=== PATIENT | male | born 1945 | race Caucasian/White ===

== ENCOUNTER 2016-11-03 10:11 | Observation (INO) | payer MEDICARE, BC ==
[~2016-11-03] VITALS: Ht 182.9 cm; Wt 84.0 kg
--- OUTSIDE RECORDS SUMMARY | 2016-11-03 10:16 | XMS REPORT ---
Author Author Bryon Larsen Organization [employer] Address Unknown Phone Unavailable Care Team Providers Care Maintenance Of Way Supervisor Name Role Phone Bryon Larsen CP Unavailable Allergies No Known Allergies Problems Problem Type Condition Code Onset Dates Condition Status Problem Essential hypertension I10 Active Problem Pure hypercholesterolemia E78.0 Active Problem Prostate cancer C61 Active Medications No Known Medications Results No Known Results Summary Purpose [employer] Submission
--- OUTSIDE RECORDS SUMMARY | 2016-11-03 10:16 | XMS REPORT ---
Author Author Bryon Larsen Organization [employer] Address Unknown Phone Unavailable Care Team Providers Care Wax Blender Name Role Phone Bryon Larsen CP Unavailable Allergies No Known Allergies Problems Problem Type Condition Code Onset Dates Condition Status Problem Essential hypertension I10 Active Problem Pure hypercholesterolemia E78.0 Active Problem Prostate cancer C61 Active Assessment Prostate cancer C61 Active Medications No Known Medications Results No Known Results Summary Purpose [employer] Submission
--- OUTSIDE RECORDS SUMMARY | 2016-11-03 10:16 | XMS REPORT ---
Author Author Chip Alvarado Organization [facility] Address [address] [place] [address] Care Team Providers Care Oil Process Stillman Name Role Phone Chip Alvarado Unavailable [phone] PROBLEMS Type Condition ICD9-CM Code SKK08-GK Code Onset Dates Condition Status SNOMED Code Assessment Sacroiliitis M46.1 Jun, Active 21694213 Assessment Spine pain, lumbosacral M54.5 Jun, Active 44752359 Problem Sacroiliitis M46.1 Active 02299367 Problem Sciatica of right side M54.31 Active 93487625 Problem Essential hypertension I10 Active 83229223 Problem Pure hypercholesterolemia E78.0 Active 703741770 Problem Elevated fasting blood sugar R73.01 Active 180051510 Problem Prostate cancer C61 Active 488712286 ALLERGIES Substance Reaction Event Type Date Status N.K.D.A. Unknown Non Drug Allergy Jun, Unknown SOCIAL HISTORY No smoking Hx information available PLAN OF CARE VITAL SIGNS Temperature 98.3 degrees Fahrenheit 2016-07-23 Weight 187.5 lbs 2016-07-23 Height 72 in 2016-07-23 BMI 25.43 kg/m2 2016-07-23 Blood pressure systolic 156 mm Hg 2016-07-23 Blood pressure diastolic 84 mm Hg 2016-07-23 MEDICATIONS Medication Instructions Dosage Frequency Start Date End Date Duration Status simvastatin 40 mg orally once a day (at bedtime) 1 tab(s) May, 90 Active lisinopril 20 mg orally once a day 1 tab(s) 24h 90 days Active atenolol 50 mg orally once a day 1 tab(s) 24h May, 90 Active RESULTS No Results PROCEDURES Procedure Date Ordered Related Diagnosis Body Site Office/Outpatient Visit-Est Jul 23, 2016 OMT 1-2 Body Parts Jul 23, 2016 IMMUNIZATIONS No Known Immunizations
--- OUTSIDE RECORDS SUMMARY | 2016-11-03 10:16 | XMS REPORT ---
Author Bryon Garcia Organization [employer] Address Unknown Phone Unavailable Care Team Providers Care Rn Acute Name Role Phone Bryon Larsen CP Unavailable Allergies, Adverse Reactions, Alerts Substance Reaction Event Type N.K.D.A. Info Not Available Non Drug Allergy Problems Problem Type Condition Code Onset Dates Condition Status Problem Prostate cancer C61 Active Problem Essential hypertension I10 Active Problem Elevated fasting blood sugar R73.01 Active Assessment Essential hypertension I10 Active Assessment Elevated fasting blood sugar R73.01 Active Problem Pure hypercholesterolemia E78.0 Active Assessment Routine medical exam Z00.00 Active Medications Medication Code System Code Instructions Start Date End Date Status Dosage lisinopril NDC 86700 20 mg orally once a day 1 tab(s) atenolol NDC 20359 50 mg orally once a day Jun 02, 2016 1 tab(s) simvastatin NDC 60631 40 mg orally once a day (at bedtime) Jun 02, 2016 1 tab(s) Procedures Procedure Coding System Code Date Immunization Admin CPT-4 11015 Jun 09, 2016 PNEUMOCOCCAL VACC, 13 MATTI IM CPT-4 49611 Jun 09, 2016 Flu Shot-Adult CPT-4 92962 Jun 09, 2016 AWV-Subsequent CPT-4 G0439 Jun 09, 2016 Vital Signs Date/Time: Jun 09, 2016 Temperature 98.5 F Blood Pressure Diastolic 70 mm Hg Blood Pressure Systolic 142 mm Hg BMI 25.14 Index Height 72 in Weight 185.4 lbs Results No Known Results Immunizations Vaccine Administration Date Flu Shot-Adult Jun 09, 2016 Prevnar-13 Jun 09, 2016 Summary Purpose [employer] Submission
--- OUTSIDE RECORDS SUMMARY | 2016-11-03 10:16 | XMS REPORT ---
Author Bryon Garcia Organization [employer] Address Unknown Phone Unavailable Care Team Providers Care Check Processing Clerk Name Role Phone Bryon Larsen CP Unavailable Allergies No Known Allergies Problems Problem Type Condition Code Onset Dates Condition Status Problem Essential hypertension I10 Active Problem Pure hypercholesterolemia E78.0 Active Problem Prostate cancer C61 Active Assessment Pure hypercholesterolemia E78.0 Active Assessment Prostate cancer C61 Active Assessment Essential hypertension I10 Active Medications No Known Medications Results No Known Results Summary Purpose [employer] Submission
--- NOTE | 2016-11-03 10:17 | NUR ---
EKG MACHINE IS NOT FUNCTIONING RIGHT. WILL GET DRYWALL TAPER HELPER DOWN
--- NOTE | 2016-11-03 10:25 | NUR ---
DR FORRESTER IN
[2016-11-03] MEDS ORDERED: NORMAL SALINE 1,000 ML IV ONE (10:34)
[2016-11-03] MEDS ORDERED: ATEN50TA PO (10:36)
[2016-11-03] MEDS ORDERED: SIMV40TA5 PO (10:37)
[2016-11-03] MEDS ORDERED: LISI-621 PO (10:37)
[2016-11-03 10:42] LABS: BASOPHILS % (AUTO) 0.4 % (0-2); EOSINOPHILS # (AUTO) 0.1 T/MM3 (0-0.5); EOSINOPHILS % (AUTO) 0.7 % (0-4); HCT - HEMATOCRIT 43.1 % (41-53); HGB - HEMOGLOBIN 14.7 GM/DL (13.5-17.5); IMMATURE GRANULOCYTE # (AUTO) 0.03 T/MM3 (0.00-0.03); IMMATURE GRANULOCYTE % (AUTO) 0.3 % (0.0-0.5); LYMPHOCYTES # (AUTO) 5.1 T/MM3 (1-4.8); LYMPHOCYTES % (AUTO) 50.4 % (23-45); MEAN CORPUSCULAR HGB 30.8 UUG (26-34); MEAN CORPUSCULAR HGB CONC(MCHC 34.1 GM/DL (31-37); MEAN CORPUSCULAR VOLUME 90.2 UM3 (80-100); MONOCYTES # (AUTO) 0.8 T/MM3 (0-0.8); MONOCYTES % (AUTO) 7.8 % (0-9.0); NEUTROPHILS % (AUTO) 40.4 % (33-66); RED BLOOD COUNT 4.78 M/MM3 (4.50-5.90)
[2016-11-03 10:44] LABS: PROTHROMBIN TIME 10.9 SEC (9.31-12.49)
[2016-11-03] MEDS ORDERED: ASPIRIN 81 MG CHEWABLE TABLET PO ONE (10:45)
[2016-11-03 10:47] LABS: ALBUMIN 4.3 G/DL (3.5-5.0); ALBUMIN/GLOBULIN RATIO 1.2 RATIO (1.1-2.2); ALKALINE PHOSPHATASE 57 U/L (38-126); ALT (SGPT) 36 U/L (21-72); ANION GAP 16 MEQ/L (5-15); AST (SGOT) 34 U/L (17-59); BUN/CREATININE RATIO 25 RATIO (6-26); CALCIUM 9.8 MG/DL (8.4-10.2); CHLORIDE 105 MEQ/L (98-107); CO2 - CARBON DIOXIDE 24 MEQ/L (22-30); CREATININE 0.8 MG/DL (0.8-1.5); GLOMERULAR FILTRATION RATE 95; GLUCOSE 124 MG/DL (75-110); POTASSIUM 4.5 MEQ/L (3.6-5); SODIUM 145 MEQ/L (134-144); TOTAL PROTEIN 7.8 G/DL (6.3-8.2)
--- NOTE | 2016-11-03 10:53 | ERPDOC ---
Departure Disposition Decision Date: Nov 03, 2016 Disposition Decision Time: 13:07 Disposition: 01 DISCHARGED HOME, SELF-CARE Impression Impression Impression: Primary Impression: Chest pain Additional Impression: Bradycardia Severity: Moderate Condition: Improved Seen By: Physician only Referrals: ROSHNI KIDD (Family) Patient Instructions: Chest Pain (ED) Problems/Meds/Labs Reviewed?: Yes Medications reviewed and manag: Yes Follow up care ordered?: Yes Mental Status: Alert, Oriented HPI - Chest Pain General Chief Complaint: Chest Pain Stated Complaint: CP Time Seen by Provider: 10:34 HPI - Chest Pain Initial Comments 71-year-old gentleman with chest pain and shortness of breath. This has been gradually increasing over the last several days to the point that he became acutely short of breath this morning and became nervous. Symptoms are approximately 2 hours old with a new onset of shortness of breath. On entering the ED he has no current chest pain, shortness of breath resolved when he laid down on the bed. He has not taken aspirin yet today. Does not smoke, he quit a couple years ago, but does dip chew. Roughly 6 years ago he had an angiogram which was normal. At age 39 years told that he had had a minor heart attack, but no damages ever been documented. No chest trauma. Aspirin Treatment Today: 81 mg x 4 Allergies: Coded Allergies: No Known Allergies (Unverified , 11/03/16) Past History Surgical History Denies Surgeries Social History Does patient use chewing tobac: Yes Substance Use Type: does not use Record Review Pertinent history updated: Yes Review of Systems Cardiovascular Cardiac: see HPI Pulmonary Respiratory: see HPI All other Systems All Other Systems: Reviewed and Negative Physical Exam General General Nourishment: well nourished, well developed, appears stated age Distress Description Initial dyspnea Vitals and Pain First Documented Vital Signs Date Time Temp Pulse Resp B/P Pulse Ox O2 Delivery O2 Flow Rate FiO2 11/03/16 10:14 98.7 55 14 202/96 100 Room Air Weight: Kilograms: 84.600 Height (feet): 6 Height (inches): 0 Triage Pain Scale: Normal Exams: Head: Normocephalic w/o trauma Chest/Resp: Clear all ramirez, with good airflow, and symmetry bilaterally CV: Regular rate and rhythm, without murmur or gallop, Pulses 2+ all extremities, capillary refill, <2 seconds all ext., no pedal edema noted Abdomen: Bowel sounds positive, soft, non-tender, non-distended, no hepatosplenomegaly, masses or bruits noted Neurologic: Patient is alert, and oriented, cranial nerves, motor/sensory/ cerebellar, exams w/o gross deficits, to observation Psychiatric: Patient exhibits, appropriate attention, emotion and affect Differential Diagnoses Considering: Acute ID, Anxiety/Panic, Angina, Aortic Dissection, CHF, Costochondritis, Esophageal Spasm, GERD, Hyperventilation, Pericarditis, Pleurisy, Pneumothorax, Pneumonia, PSVT, Pulmonary Edema, Pulmonary Embolus Progress Results/Orders Orders Procedure Category Date Status Time Cbc W/Auto LAB 11/03/16 Complete Diff-Reflex Manual 10:34 Cmp - Comprehensive LAB 11/03/16 Complete Metabolic 10:34 Probnp LAB 11/03/16 Complete 10:34 Troponin I W LAB 11/03/16 Complete Hemolysis Index 10:34 INR LAB 11/03/16 Complete 10:34 D-Dimer LAB 11/03/16 Complete 10:34 EKG EKG 11/03/16 Taken 10:34 Chest 1 View RAD 11/03/16 Resulted 10:34 Iv Lock (Ed Only) EDM 11/03/16 Transmitted 10:34 Normal Saline (Normal PHA 11/03/16 Complete Saline Iv) 10:34 Aspirin (Asa) PHA 11/03/16 Complete 10:45 Nitroglycerin PHA 11/03/16 Complete (Nitrostat) 11:00 Lab Results Laboratory Tests Test 11/03/16 10:24 White Blood Count 10.0T/MM3 Red Blood Count 4.78M/MM3 Hemoglobin 14.7GM/DL Hematocrit 43.1% Mean Corpuscular Volume 90.2UM3 Mean Corpuscular Hemoglobin 30.8UUG Mean Corpuscular Hemoglobin Concent 34.1GM/DL RDW Standard Deviation 42.1FL Platelet Count 251T/MM3 Mean Platelet Volume 10.0UM3 Immature Granulocyte % (Auto) 0.3% Neutrophils (%) (Auto) 40.4% Lymphocytes (%) (Auto) 50.4% Monocytes (%) (Auto) 7.8% Eosinophils (%) (Auto) 0.7% Basophils (%) (Auto) 0.4% Absolute Immature Granulocyte (auto 0.03T/MM3 Absolute Neutrophils (auto) 4.0T/MM3 Absolute Lymphocytes (auto) 5.1T/MM3 Absolute Monocytes (auto) 0.8T/MM3 Absolute Eosinophils (auto) 0.1T/MM3 Absolute Basophils (auto) 0.0T/MM3 Prothromb Time International Ratio 1.00 D-Dimer 171NG/ML Turbidity < 20 Sodium Level 145MEQ/L Potassium Level 4.5MEQ/L Chloride Level 105MEQ/L Carbon Dioxide Level 24MEQ/L Anion Gap 16MEQ/L Blood Urea Nitrogen 20.0MG/DL Creatinine 0.8MG/DL Glomerular Filtration Rate Calc 95 BUN/Creatinine Ratio 25RATIO Glucose Level 124MG/DL Calculated Osmolality 283MOSM/KG Calcium Level 9.8MG/DL Total Bilirubin 0.90MG/DL Icterus Index < 2 Aspartate Amino Transf (AST/SGOT) 34U/L Alanine Aminotransferase (ALT/SGPT) 36U/L Alkaline Phosphatase 57U/L Troponin I < 0.012ng/ml [id number]-[id number]-Type Natriuretic Peptide 91PG/ML Total Protein 7.8G/DL Albumin 4.3G/DL Globulin 3.5G/DL Albumin/Globulin Ratio 1.2RATIO Chemistry Specimen Hemolysis < 15 Medications Current ED Medications Sodium Chloride (Normal Saline IV) 1,000 ml @ 1,000 mls/hr Q1H ONCE IV Last administered on 11/03/16 10:47; Start 11/03/16 at 10:34; Stop 11/03/16 at 11:33 ; Status DC Aspirin (ASA) 324 mg O ONCE PO Last administered on 11/03/16 10:41; Start 06/11 at 10:45; Stop 11/03/16 at 10:46; Status DC Nitroglycerin (Nitrostat) 0.4 mg O ONCE SL Last administered on 11/03/16 10: 57; Start 11/03/16 at 11:00; Stop 11/03/16 at 11:01; Status DC Progress Progress EKG shows bradycardia, occasionally dipping below 40, but typically running 45- 50 bpm. Because of the newer onset shortness of breath on top of the 2 week chest pain I have some concerns about sending him home. He also has had 2 episodes of chest pain in the ED which were resolved with sublingual nitroglycerin. Patient does have beta juanita on board which may be causing the bradycardia, cardiology graciously agreed to accept this patient to make sure that there were not other issues today. Patient be placed in observation. Dr. Fitzgerald was consult. GENET FORRESTER MD Nov 03, 2016 10:53
--- NOTE | 2016-11-03 10:57 | NUR ---
NITRO PT. C/O LT. ARM PAIN IS RATES A 5. NITRO GIVEN.
[2016-11-03 10:58] LABS: PROBNP 91 PG/ML (0-175)
[2016-11-03] MEDS ORDERED: NITROGLYCERIN 0.4 MG SUBLINGUAL TABLET SL ONE (11:00)
--- NOTE | 2016-11-03 11:07 | NUR ---
PAIN ARM PAIN GONE. BP IMPROVED
--- NOTE | 2016-11-03 11:43 | DI ---
Indication: ITS.REASON: chest pain PROCEDURE: CHEST 1 VIEW: Encounter: Initial Comparison: None FINDINGS: The lungs are clear. There is no abnormal airspace opacity, pleural effusion or pneumothorax identified. The heart size, pulmonary vasculature and mediastinum are within normal limits. No significant skeletal abnormality is seen. IMPRESSION: No acute cardiopulmonary abnormality. .
--- NOTE | 2016-11-03 11:50 | NUR ---
HEART RATE PT HR IS DIPPING BELOW 40 3 TIMES. RUNNING 45 AT PRESENT. PT HAS HAD FLEETING CP X 1.
--- NOTE | 2016-11-03 11:54 | NUR ---
OUTPUT 450 CC
--- NOTE | 2016-11-03 11:55 | NUR ---
HR NURSE ASKED PT IF HIS HR RUNS IN 40'S OR LOWER. HE SAYS ONCE IT WENT DOWN & DR CHANGED HIS ATENOLOL FROM 50 MG TO 25 MG. THEN BECAUSE OF HIS BP HE WAS ADJUSTED BACK UP TO 50 MG. PT TAKES ATENOLOL AT HS.
--- NOTE | 2016-11-03 11:55 | NUR ---
DR FORRESTER IN
--- NOTE | 2016-11-03 13:14 | NUR ---
REPORT TO ARMANDO GARCIA
--- NOTE | 2016-11-03 13:28 | NUR ---
ARRIVAL pt arrived to medical unit at 1328, from ER, via cart. vitals and weight were taken and entered. pt was assessed and made comfortable. pt on room air. is present. report was taken from Alisha GARCIA.
[2016-11-03] MEDS ORDERED: ONDANSETRON 4mg/2ml INJECTION IV PRN (13:30)
[2016-11-03] MEDS ORDERED: MORPHINE SULFATE 4 MG SYRINGE IV PRN (13:30)
[2016-11-03] MEDS ORDERED: PRN ORDERS MC (13:30)
--- NOTE | 2016-11-03 13:32 | NUR ---
TRANSPORTED PER CART ON TELEMETRY ACCOMPANIED BY IRENE AGRCIA.
[2016-11-03 13:34] VITALS: BP 156/84; PULSE 44; RESP 20; TEMP 96.6; O2SAT 92
[2016-11-03 13:38] VITALS: Ht 182.9 cm; Wt 84.0 kg
[2016-11-03 13:40] VITALS: PULSE 46; RESP 20
[2016-11-03 15:11] LABS: MAGNESIUM 2.1 MG/DL (1.6-2.3)
--- NOTE | 2016-11-03 15:23 | HPPDOC ---
BETTE CUMMINS STOVE MOUNTER 11/03/16 1353: HPI - Adult Date DATE: 11/03/16 TIME: 13:50 General Date of Admission Date of Admission: Nov 03, 2016 at 13:08 History of Present Illness Ash is a 71-year-old gentleman with chest pain and shortness of breath. Chest has been gradually increasing over the last several days to the point that he became acutely short of breath this morning and became nervous. Symptoms are approximately 2 hours old with a new onset of shortness of breath. On entering the ED he has no current chest pain, shortness of breath resolved when he laid down on the bed. He has not taken aspirin yet today. Does not smoke , he quit a couple years ago, but does dip chew. Roughly 6 years ago he had an angiogram which was normal. At age 39 years told that he had had a minor heart attack, but no damages ever been documented. No chest trauma. Past Medical History Past Medical History Metabolic: cancer (prostate), hypertension Cardiac: OK, other (MV prolapse) Respiratory: COPD Surgical History General: appendix, tonsils Joint: foot (right) Current Medications Home Meds Active Scripts Lisinopril (Lisinopril) 40 Mg Tablet, 40 MG PO HS for 30 Days, #30 TAB 11 Refills Prov:BETTE CUMMINS STOVE MOUNTER 11/04/16 Amlodipine Besylate (Amlodipine Besylate) 5 Mg Tablet, 5 MG PO DAILY for 30 Days , #30 TAB 11 Refills Prov:BETTE CUMMINS STOVE MOUNTER 11/04/16 Reported Medications Simvastatin (Simvastatin) 40 Mg Tablet, 40 MG PO HS 11/03/16 Discontinued Reported Medications Lisinopril (Lisinopril) 20 Mg Tablet, 20 MG PO HS 11/03/16 Atenolol (Atenolol) 50 Mg Tablet, 50 MG PO HS 11/03/16 Allergies: Coded Allergies: No Known Allergies (Unverified , 11/03/16) Vaccines 2016 Yes Social History Does patient use chewing tobac: Yes Substance Use Type: does not use Advance Directives: Yes DPOA for Healthcare Only (Marla Elias, ) Review of Systems Constitutional: REPORTS: dizziness, DENIES: chills, fatigue, fever, weakness Eyes Vision: DENIES: double vision ENMT Hearing: DENIES: tinnitus Balance: vertigo Mouth/Throat: DENIES: sore throat Cardiovascular chest pain, dyspnea on exertion, DENIES: murmur, paroxysmal nocturnal dysp Rhythm/Rate: DENIES: irregular beat, palpitations Vascular: DENIES: pedal edema Pulmonary Respiratory: DENIES: cough, sputum GI Upper Abdomen: DENIES: nausea, vomiting Lower Abdomen: DENIES: blood in stool, diarrhea General: DENIES: dysuria Integumentary Skin: DENIES: rash, sores Neurological General: DENIES: headache, numbness, seizures, syncope, weakness All Other Systems All Other Systems: Reviewed (remainder of 10-point ROS Neg.) Physical Exam General General Nourishment: well nourished, well developed, apparent age Vital Signs Vital Signs Date Time Temp Pulse Resp B/P Pulse Ox O2 Delivery O2 Flow Rate FiO2 11/03/16 13:34 96.6 44 20 156/84 92 Room Air Height (Feet): 6 Height (Inches): 0.00 Telemetry Rhythm: Sinus Bradycardia ENMT Brief: FOUND: mucosa moist Neck Brief: NOT FOUND: JVD, carotid bruits Respiratory Brief: FOUND: clear all ramirez, equal bilaterally, NOT FOUND: rales , wheezes Cardiovascular (brief) Cardiac Brief: FOUND: regular rhythm, NOT FOUND: murmur, pedal edema, regular rate (bradycardia) Abdomen (brief) Abdominal Brief: FOUND: BS normo active x4, soft, NOT FOUND: tender Integumentary (brief) Integumentary Brief: FOUND: dry, pink, warm Neurologic RN Documented GCS Eye Opening: Verbal: Motor: Total: Psychiatric (brief) FOUND: alert, attentive, oriented Laboratory Laboratory Tests Test 11/03/16 10:24 11/03/16 16:06 White Blood Count 10.0T/MM3 Red Blood Count 4.78M/MM3 Hemoglobin 14.7GM/DL Hematocrit 43.1% Mean Corpuscular Volume 90.2UM3 Mean Corpuscular Hemoglobin 30.8UUG Mean Corpuscular Hemoglobin Concent 34.1GM/DL RDW Standard Deviation 42.1FL Platelet Count 251T/MM3 Mean Platelet Volume 10.0UM3 Immature Granulocyte % (Auto) 0.3% Neutrophils (%) (Auto) 40.4% Lymphocytes (%) (Auto) 50.4% Monocytes (%) (Auto) 7.8% Eosinophils (%) (Auto) 0.7% Basophils (%) (Auto) 0.4% Absolute Immature Granulocyte (auto 0.03T/MM3 Absolute Neutrophils (auto) 4.0T/MM3 Absolute Lymphocytes (auto) 5.1T/MM3 Absolute Monocytes (auto) 0.8T/MM3 Absolute Eosinophils (auto) 0.1T/MM3 Absolute Basophils (auto) 0.0T/MM3 Prothromb Time International Ratio 1.00 D-Dimer 171NG/ML Turbidity < 20 Sodium Level 145MEQ/L Potassium Level 4.5MEQ/L Chloride Level 105MEQ/L Carbon Dioxide Level 24MEQ/L Anion Gap 16MEQ/L Blood Urea Nitrogen 20.0MG/DL Creatinine 0.8MG/DL Glomerular Filtration Rate Calc 95 BUN/Creatinine Ratio 25RATIO Glucose Level 124MG/DL Calculated Osmolality 283MOSM/KG Calcium Level 9.8MG/DL Magnesium Level 2.1MG/DL Total Bilirubin 0.90MG/DL Icterus Index < 2 Aspartate Amino Transf (AST/SGOT) 34U/L Alanine Aminotransferase (ALT/SGPT) 36U/L Alkaline Phosphatase 57U/L Troponin I < 0.012ng/ml < 0.012ng/ml VW-Bre-R-Type Natriuretic Peptide 91PG/ML Total Protein 7.8G/DL Albumin 4.3G/DL Globulin 3.5G/DL Albumin/Globulin Ratio 1.2RATIO Thyroid Stimulating Hormone (TSH) 0.77MIU/L Chemistry Specimen Hemolysis < 15 < 15 Laboratory Tests Test 11/03/16 10:24 White Blood Count 10.0T/MM3 Red Blood Count 4.78M/MM3 Hemoglobin 14.7GM/DL Hematocrit 43.1% Mean Corpuscular Volume 90.2UM3 Mean Corpuscular Hemoglobin 30.8UUG Mean Corpuscular Hemoglobin Concent 34.1GM/DL RDW Standard Deviation 42.1FL Platelet Count 251T/MM3 Mean Platelet Volume 10.0UM3 Immature Granulocyte % (Auto) 0.3% Neutrophils (%) (Auto) 40.4% Lymphocytes (%) (Auto) 50.4% Monocytes (%) (Auto) 7.8% Eosinophils (%) (Auto) 0.7% Basophils (%) (Auto) 0.4% Absolute Immature Granulocyte (auto 0.03T/MM3 Absolute Neutrophils (auto) 4.0T/MM3 Absolute Lymphocytes (auto) 5.1T/MM3 Absolute Monocytes (auto) 0.8T/MM3 Absolute Eosinophils (auto) 0.1T/MM3 Absolute Basophils (auto) 0.0T/MM3 Prothromb Time International Ratio 1.00 D-Dimer 171NG/ML Turbidity < 20 Sodium Level 145MEQ/L Potassium Level 4.5MEQ/L Chloride Level 105MEQ/L Carbon Dioxide Level 24MEQ/L Anion Gap 16MEQ/L Blood Urea Nitrogen 20.0MG/DL Creatinine 0.8MG/DL Glomerular Filtration Rate Calc 95 BUN/Creatinine Ratio 25RATIO Glucose Level 124MG/DL Calculated Osmolality 283MOSM/KG Calcium Level 9.8MG/DL Total Bilirubin 0.90MG/DL Icterus Index < 2 Aspartate Amino Transf (AST/SGOT) 34U/L Alanine Aminotransferase (ALT/SGPT) 36U/L Alkaline Phosphatase 57U/L Troponin I < 0.012ng/ml AJ-Lmx-X-Type Natriuretic Peptide 91PG/ML Total Protein 7.8G/DL Albumin 4.3G/DL Globulin 3.5G/DL Albumin/Globulin Ratio 1.2RATIO Chemistry Specimen Hemolysis < 15 EKG Sinus Bradycardia Radiology DATE OF EXAM: 11/03/16 ORDERING DOCTOR: GENET FORRESTER MD TYPE OF EXAM: CHEST 1 VIEW REASON FOR EXAM: chest pain Indication: ITS.REASON: chest pain PROCEDURE: CHEST 1 VIEW: Encounter: Initial Comparison: None FINDINGS: The lungs are clear. There is no abnormal airspace opacity, pleural effusion or pneumothorax identified. The heart size, pulmonary vasculature and mediastinum are within normal limits. No significant skeletal abnormality is seen. IMPRESSION: No acute cardiopulmonary abnormality. Assessment & Plan Problems: (1) Chest pain Status: Acute Qualifiers: Chest pain type: unspecified Qualified Codes: R07.9 - Chest pain, unspecified Assessment & Plan: Chest pain that occurs at rest, but not with swimming and over exertional activity. Trend serial troponin levels, EKG without ischemic changes. 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 Has more recent frequent episodes of dizziness and near syncope, worse after swimming or other exercise. Stop Atenolol and monitor on telemetry overnight. Will need out patient Holter once BB is out of his system. (3) Hypertension Status: Chronic Qualifiers: Hypertension type: essential hypertension Qualified Codes: I10 - Essential (primary) hypertension Assessment & Plan: Atenolol stopped, continue Lisinopril and continue to monitor (4) Hyperlipidemia Status: Chronic Qualifiers: Hyperlipidemia type: mixed hyperlipidemia Qualified Codes: E78.2 - Mixed hyperlipidemia Assessment & Plan: Takes Simvastatin 40mg, PCP manages Plan/Intensity of Service Chest pain that occurs at rest, but not with swimming and over exertional activity. Trend serial troponin levels, EKG without ischemic changes. Not likely ischemic pain, will plan outpatient stress test for further evaluation. Has chronic bradycardia due to Atenolol. Has more recent frequent episodes of dizziness and near syncope, worse after swimming or other exercise. Stop Atenolol and monitor on telemetry overnight. Will need out patient Holter once BB is out of his system. HTN: Atenolol stopped, continue Lisinopril and continue to monitor Takes Simvastatin 40mg, PCP manages Code Status Full Code Hospital Course Summary Disclaimer The hospital course summary below is not to be considered part of the above Progress Note. KAY COTE MD 11/06/16 1555: Past Medical History Current Medications Home Meds Active Scripts Lisinopril (Lisinopril) 40 Mg Tablet, 40 MG PO HS for 30 Days, #30 TAB 11 Refills Prov:BETTE CUMMINS STOVE MOUNTER 11/04/16 Amlodipine Besylate (Amlodipine Besylate) 5 Mg Tablet, 5 MG PO DAILY for 30 Days , #30 TAB 11 Refills Prov:BETTE CUMMINS STOVE MOUNTER 11/04/16 Reported Medications Simvastatin (Simvastatin) 40 Mg Tablet, 40 MG PO HS 11/03/16 Discontinued Reported Medications Lisinopril (Lisinopril) 20 Mg Tablet, 20 MG PO HS 11/03/16 Atenolol (Atenolol) 50 Mg Tablet, 50 MG PO HS 11/03/16 Allergies: Coded Allergies: No Known Allergies (Unverified , 11/03/16) Assessment & Plan Hospital Course Summary Hospital Course Summary After examining the patient I agree with the above assessment. I am involved in the formulation of the patient's plan of care. BETTE CUMMINS APRN Nov 03, 2016 13:53 KAY COTE MD Nov 06, 2016 15:55
[2016-11-03 15:43] LABS: THYROID STIM HORMONE-TSH 0.77 MIU/L (0.47-4.68)
[2016-11-03 16:00] VITALS: BP 144/75; PULSE 46; RESP 18; TEMP 97.2; O2SAT 97
[2016-11-03] MEDS: ASPIRIN 81 MG CHEWABLE TABLET PO SCH (17:57)
[2016-11-03] MEDS: ENOXAPARIN 40 MG/0.4 ML INJECTION SQ SCH (17:57)
[2016-11-03 20:30] VITALS: PULSE 50; RESP 20
[2016-11-03 20:38] VITALS: BP 184/75; PULSE 56; RESP 20; TEMP 98.4; O2SAT 100
--- NOTE | 2016-11-03 20:44 | NUR ---
HOME MEDS PT SELF ADMINISTERED HIS OWN LISINOPRIL AND ZOCOR THAT HIS HAD BROUGHT FROM HOME. THANKED PT FOR BEING HONEST AND INFORMING NURSING STAFF. EDUCATED PT OF [facility]S HOME MED POLICY INCLUDING ORIGINAL CONTAINERS AND VERIFICATION FROM PHARMACY. PT APOLOGIZED, REPORTS HE NOW UNDERSTANDS.
[2016-11-03] MEDS ORDERED: SIMVASTATIN 40 MG TABLET PO SCH (22:00)
[2016-11-03] MEDS ORDERED: LISINOPRIL 20 MG TABLET PO SCH (22:00)
[2016-11-03 23:52] VITALS: BP 133/73; PULSE 51; RESP 18; TEMP 97.2; O2SAT 97
[2016-11-04 07:24] VITALS: BP 142/77; PULSE 46; RESP 16; TEMP 95.6; O2SAT 100
[2016-11-04] MEDS ORDERED: ACETAMINOPHEN 325 MG TABLET PO PRN (07:30)
[2016-11-04] MEDS: ASPIRIN 81 MG CHEWABLE TABLET PO SCH (07:36)
[2016-11-04] MEDS: ENOXAPARIN 40 MG/0.4 ML INJECTION SQ SCH (07:37)
[2016-11-04 07:52] VITALS: PULSE 46
--- NOTE | 2016-11-04 08:31 | NUR ---
Status Patient alert and oriented. Up on own in room. States he does get dizzy at times however states he sits on the side of bed until it clears. HR 40's-50's. Denies CP and SOA at this time. States he has gotten an appetite since being admitted, denies nausea.
--- NOTE | 2016-11-04 09:10 | ECHOF ---
DATE OF PROCEDURE November 03, 2016 This is a two-dimensional echo with spectral Doppler, color-flow and M-mode. It was obtained in a patient with chest pain. Left atrial dimension is normal. Left ventricle end-diastolic dimension is normal. Left ventricular wall thickness is normal. LV systolic function is normal with ejection fraction of 65%. Right atrium is normal. Right ventricle is normal. Aortic root dimension is normal. Mitral valve is morphologically normal with mild mitral regurgitation. Aortic valve is a trileaflet structure with no stenosis or insufficiency. Tricuspid valve shows moderate tricuspid regurgitation with mild pulmonary hypertension with estimated pulmonary artery systolic pressure of 38. Pulmonary valve shows mild pulmonary insufficiency. There is no pericardial effusion. IMPRESSION 1. Normal LV systolic function with ejection fraction of 65%. 2. Mild mitral regurgitation. 3. Moderate tricuspid regurgitation with mild pulmonary hypertension with estimated pulmonary artery systolic pressure of 38. 4. Mild pulmonary insufficiency. MTDD
--- NOTE | 2016-11-04 11:03 | NUR ---
CM CM IN TO VISIT PT. CM ROLL AND PROVIDES CONTACT INFORMATION. PT DENIES HOME NEEDS AND IS AWARE TO CALL CM SHOULD NEEDS ARISE.
[2016-11-04] MEDS ORDERED: AMLODIPINE 5 MG TABLET PO SCH (14:15)
[2016-11-04] MEDS ORDERED: LISINOPRIL 20 MG TABLET PO ONE (14:15)
[2016-11-04] MEDS ORDERED: AMLO5TAB2 PO (14:30)
[2016-11-04] MEDS ORDERED: LISI40TA4 PO (14:30)
--- NOTE | 2016-11-04 14:33 | DSPDOC ---
EBTTE CUMMINS [employer] REPAIRER 11/04/16 1422: General Date Date DATE: 11/04/16 TIME: 14:18 Attending Physician Jarek Cote MD Admitting Physician Jarek Cote MD Consulting Physician Admitting Diagnosis chest pain, bradycardia Discharge Diagnosis Bradycardia Laboratory Laboratory Tests Test 11/03/16 10:24 11/03/16 16:06 11/03/16 22:05 11/04/16 04:18 White Blood Count 10.0T/MM3 Red Blood Count 4.78M/MM3 Hemoglobin 14.7GM/DL Hematocrit 43.1% Mean Corpuscular Volume 90.2UM3 Mean Corpuscular Hemoglobin 30.8UUG Mean Corpuscular Hemoglobin Concent 34.1GM/DL RDW Standard Deviation 42.1FL Platelet Count 251T/MM3 Mean Platelet Volume 10.0UM3 Immature Granulocyte % (Auto) 0.3% Neutrophils (%) (Auto) 40.4% Lymphocytes (%) (Auto) 50.4% Monocytes (%) (Auto) 7.8% Eosinophils (%) (Auto) 0.7% Basophils (%) (Auto) 0.4% Absolute Immature Granulocyte (auto 0.03T/MM3 Absolute Neutrophils (auto) 4.0T/MM3 Absolute Lymphocytes (auto) 5.1T/MM3 Absolute Monocytes (auto) 0.8T/MM3 Absolute Eosinophils (auto) 0.1T/MM3 Absolute Basophils (auto) 0.0T/MM3 Prothromb Time International Ratio 1.00 D-Dimer 171NG/ML Turbidity < 20 Sodium Level 145MEQ/L Potassium Level 4.5MEQ/L Chloride Level 105MEQ/L Carbon Dioxide Level 24MEQ/L Anion Gap 16MEQ/L Blood Urea Nitrogen 20.0MG/DL Creatinine 0.8MG/DL Glomerular Filtration Rate Calc 95 BUN/Creatinine Ratio 25RATIO Glucose Level 124MG/DL Calculated Osmolality 283MOSM/KG Calcium Level 9.8MG/DL Magnesium Level 2.1MG/DL Total Bilirubin 0.90MG/DL Icterus Index < 2 Aspartate Amino Transf (AST/SGOT) 34U/L Alanine Aminotransferase (ALT/SGPT) 36U/L Alkaline Phosphatase 57U/L Troponin I < 0.012ng/ml < 0.012ng/ml < 0.012ng/ml < 0.012ng/ml XH-Cdz-F-Type Natriuretic Peptide 91PG/ML Total Protein 7.8G/DL Albumin 4.3G/DL Globulin 3.5G/DL Albumin/Globulin Ratio 1.2RATIO Thyroid Stimulating Hormone (TSH) 0.77MIU/L Chemistry Specimen Hemolysis < 15 < 15 < 15 < 15 Laboratory Tests Test 11/03/16 10:24 11/03/16 16:06 11/03/16 22:05 11/04/16 04:18 White Blood Count 10.0T/MM3 (4.5-11.0) Red Blood Count 4.78M/MM3 (4.50-5.90) Hemoglobin 14.7GM/DL (13.5-17.5) Hematocrit 43.1% (41-53) Mean Corpuscular Volume 90.2UM3 (80-100) Mean Corpuscular Hemoglobin 30.8UUG (26-34) Mean Corpuscular Hemoglobin Concent 34.1GM/DL (31-37) RDW Standard Deviation 42.1FL (36.9-50.2) Platelet Count 251T/MM3 (130-400) Mean Platelet Volume 10.0UM3 (9.4-12.4) Immature Granulocyte % (Auto) 0.3% (0.0-0.5) Neutrophils (%) (Auto) 40.4% (33-66) Lymphocytes (%) (Auto) 50.4% (23-45) Monocytes (%) (Auto) 7.8% (0-9.0) Eosinophils (%) (Auto) 0.7% (0-4) Basophils (%) (Auto) 0.4% (0-2) Absolute Immature Granulocyte (auto 0.03T/MM3 (0.00-0.03) Absolute Neutrophils (auto) 4.0T/MM3 (1.8-7.7) Absolute Lymphocytes (auto) 5.1T/MM3 (1-4.8) Absolute Monocytes (auto) 0.8T/MM3 (0-0.8) Absolute Eosinophils (auto) 0.1T/MM3 (0-0.5) Absolute Basophils (auto) 0.0T/MM3 (0-0.2) Prothromb Time International Ratio 1.00 (0.76-1.04) D-Dimer 171NG/ML (0-230) Turbidity < 20 (0-20) Sodium Level 145MEQ/L (134-144) Potassium Level 4.5MEQ/L (3.6-5) Chloride Level 105MEQ/L (98-107) Carbon Dioxide Level 24MEQ/L (22-30) Anion Gap 16MEQ/L (5-15) Blood Urea Nitrogen 20.0MG/DL (9-20) Creatinine 0.8MG/DL (0.8-1.5) Glomerular Filtration Rate Calc 95 BUN/Creatinine Ratio 25RATIO (6-26) Glucose Level 124MG/DL (75-110) Calculated Osmolality 283MOSM/KG (261-280) Calcium Level 9.8MG/DL (8.4-10.2) Magnesium Level 2.1MG/DL (1.6-2.3) Total Bilirubin 0.90MG/DL (0.20-1.30) Icterus Index < 2 (0-7) Aspartate Amino Transf (AST/SGOT) 34U/L (17-59) Alanine Aminotransferase (ALT/SGPT) 36U/L (21-72) Alkaline Phosphatase 57U/L (38-126) Troponin I < 0.012ng/ml (0-0.12) < 0.012ng/ml (0-0.12) < 0.012ng/ml (0-0.12) < 0.012ng/ml (0-0.12) EA-Fpo-P-Type Natriuretic Peptide 91PG/ML (0-175) Total Protein 7.8G/DL (6.3-8.2) Albumin 4.3G/DL (3.5-5.0) Globulin 3.5G/DL (2.4-3.6) Albumin/Globulin Ratio 1.2RATIO (1.1-2.2) Thyroid Stimulating Hormone (TSH) 0.77MIU/L (0.47-4.68) Chemistry Specimen Hemolysis < 15 (0-25) < 15 (0-25) < 15 (0-25) < 15 (0-25) Radiology DATE OF EXAM: 11/03/16 ORDERING DOCTOR: GENET FORRESTER MD TYPE OF EXAM: CHEST 1 VIEW REASON FOR EXAM: chest pain Indication: ITS.REASON: chest pain PROCEDURE: CHEST 1 VIEW: Encounter: Initial Comparison: None FINDINGS: The lungs are clear. There is no abnormal airspace opacity, pleural effusion or pneumothorax identified. The heart size, pulmonary vasculature and mediastinum are within normal limits. No significant skeletal abnormality is seen. IMPRESSION: No acute cardiopulmonary abnormality. DATE OF PROCEDURE November 03, 2016 This is a two-dimensional echo with spectral Doppler, color-flow and M-mode. It was obtained in a patient with chest pain. Left atrial dimension is normal. Left ventricle end-diastolic dimension is normal. Left ventricular wall thickness is normal. LV systolic function is normal with ejection fraction of 65%. Right atrium is normal. Right ventricle is normal. Aortic root dimension is normal. Mitral valve is morphologically normal with mild mitral regurgitation. Aortic valve is a trileaflet structure with no stenosis or insufficiency. Tricuspid valve shows moderate tricuspid regurgitation with mild pulmonary hypertension with estimated pulmonary artery systolic pressure of 38. Pulmonary valve shows mild pulmonary insufficiency. There is no pericardial effusion. IMPRESSION 1. Normal LV systolic function with ejection fraction of 65%. 2. Mild mitral regurgitation. 3. Moderate tricuspid regurgitation with mild pulmonary hypertension with estimated pulmonary artery systolic pressure of 38. 4. Mild pulmonary insufficiency. History of Present Illness Ash is a 71-year-old gentleman with chest pain and shortness of breath. Chest has been gradually increasing over the last several days to the point that he became acutely short of breath this morning and became nervous. Symptoms are approximately 2 hours old with a new onset of shortness of breath. On entering the ED he has no current chest pain, shortness of breath resolved when he laid down on the bed. He has not taken aspirin yet today. Does not smoke , he quit a couple years ago, but does dip chew. Roughly 6 years ago he had an angiogram which was normal. At age 39 years told that he had had a minor heart attack, but no damages ever been documented. No chest trauma. Objective Vital Signs Vital signs Vital Signs 11/04/16 11/04/16 07:24 07:52 Temp 95.6 Pulse 46 46 Resp 16 B/P 142/77 Pulse Ox 100 O2 Delivery Room Air Telemetry Rhythm: Sinus Bradycardia Height (Feet): 6 Height (Inches): 0.00 Weight (Kilograms): 84.000 General Alert, Orientated x 3, Cooperative ENMT (Brief) mucosa moist Neck (Brief) NOT FOUND: JVD, carotid bruits Respiratory (Brief) clear all ramirez, equal bilaterally, NOT FOUND: rales, wheezes Cardiovascular (Brief) regular rhythm, NOT FOUND: murmur, pedal edema, regular rate (bradycardia) Abdomen (Brief) BS normo active x4, soft, NOT FOUND: tender Integumentary (Brief) dry, pink, warm Psychiatric (Brief) alert, oriented EKG Sinus bradycardia Medications Current Medications Sodium Chloride (Normal Saline IV) 1,000 ml @ 1,000 mls/hr Q1H ONCE IV Last administered on 11/03/16 10:47; Start 11/03/16 at 10:34; Stop 11/03/16 at 11:33 ; Status DC Nitroglycerin (Nitrostat) 0.4 mg O ONCE SL Last administered on 11/03/16 10: 57; Start 11/03/16 at 11:00; Stop 11/03/16 at 11:01; Status DC Morphine Sulfate (Morphine) prn Q1H PRN IV PAIN; Start 11/03/16 at 13:30 Ondansetron HCl (Zofran) 4 mg Q6H PRN IV NAUSEA; Start 11/03/16 at 13:30 Miscellaneous Medication (May use PRN orders) 1 PRN PRN MC ; Start 11/03/16 at 13:30 Aspirin (ASA) 81 mg DAILY PO ; Start 11/03/16 at 17:30 Enoxaparin Sodium (Lovenox) 40 mg DAILY SQ Last administered on 11/04/16 07:37 ; Start 11/03/16 at 17:30 Simvastatin (Zocor) 40 mg HS PO ; Start 11/03/16 at 22:00 Acetaminophen (Tylenol Regular Strength) 1-2 tablets Q5H PRN PO DISCOMFORT Last administered on 11/04/16 07:35; Start 11/04/16 at 07:30 Lisinopril (Prinivil) 20 mg DAILY ONCE PO ; Start 11/04/16 at 14:15; Stop 11/04 at 14:16; Status UNV Amlodipine Besylate (Norvasc) 5 mg DAILY PO ; Start 11/04/16 at 14:15; Status UNV Hospital Course Ash was admitted for observation, seen and examined by Dr. Cote and myself. His Atenolol was stopped due to symptomatic bradycardia. Lisinopril was increased and Amlodipine added for BP control. He was instructed to take and record his BP 2-3 times a week and bring recordings to follow up appointment. Problems: (1) Chest pain Status: Acute (2) Bradycardia Status: Chronic (3) Hypertension Status: Chronic (4) Hyperlipidemia Status: Chronic Code Status Full Code Home Meds Active Scripts Lisinopril (Lisinopril) 40 Mg Tablet, 40 MG PO HS for 30 Days, #30 TAB 11 Refills Prov:BETTE CUMMINS APRN 11/04/16 Amlodipine Besylate (Amlodipine Besylate) 5 Mg Tablet, 5 MG PO DAILY for 30 Days , #30 TAB 11 Refills Prov:BETTE CUMMINS APRN 11/04/16 Reported Medications Simvastatin (Simvastatin) 40 Mg Tablet, 40 MG PO HS 11/03/16 Discontinued Reported Medications Lisinopril (Lisinopril) 20 Mg Tablet, 20 MG PO HS 11/03/16 Atenolol (Atenolol) 50 Mg Tablet, 50 MG PO HS 11/03/16 Discharge Disposition Admitted to home in good and stable condition in the care of himself with RX for Lisinopril 40mg and Amlodipine 5mg daily transmitted to patient's preferred pharmacy. JAREK COTE MD 11/09/16 1628: Hospital Course Home Meds Active Scripts Lisinopril (Lisinopril) 40 Mg Tablet, 40 MG PO HS for 30 Days, #30 TAB 11 Refills Prov:BETTE CUMMINS APRN 11/04/16 Amlodipine Besylate (Amlodipine Besylate) 5 Mg Tablet, 5 MG PO DAILY for 30 Days , #30 TAB 11 Refills Prov:BETTE CUMMINS [employer] REPAIRER 11/04/16 Reported Medications Simvastatin (Simvastatin) 40 Mg Tablet, 40 MG PO HS 11/03/16 Discontinued Reported Medications Lisinopril (Lisinopril) 20 Mg Tablet, 20 MG PO HS 11/03/16 Atenolol (Atenolol) 50 Mg Tablet, 50 MG PO HS 11/03/16 Discharge Disposition After examining the patient I agree with the above assessment. I am involved in the formulation of the patient's plan of care. BETTE CUMMINS APRN Nov 04, 2016 14:22 JAREK COTE MD Nov 09, 2016 16:28
--- NOTE | 2016-11-04 15:05 | NUR ---
Discharge Patient discharged to home. here to transport. Patient understands discharge instructions, questions answered. IV dc'd, cath intact.
[2016-11-04] MEDS ORDERED: LISINOPRIL 40 MG TABLET PO SCH (22:00)
[2016-11-05 00:51] LABS: LDL CHOLESTEROL,CALCULATED 66.4 (66-159); RISK FACTOR 3.1 RATIO (0-5.0); VLDL CHOLESTEROL 14.6 MG/DL (0-28)
== END 2016-11-04 15:05 | disposition home or self-care (01) ==
LOC: ED 10:11 → EDHOLD 13:08 → MED 13:28
PROVIDERS: ADMIT Internal Medicine Cardiovascular Disease; ATTEND Internal Medicine Cardiovascular Disease
DX: R00.1 Bradycardia, unspecified (principal); T44.7X Poisoning by, adverse effect of and underdosing of beta-adrenoreceptor antagonists; R07.9 Chest pain, unspecified; I10 Essential (primary) hypertension; E78.2 Mixed hyperlipidemia; F17.220 Nicotine dependence, chewing tobacco, uncomplicated; I34.1 Nonrheumatic mitral (valve) prolapse; J44.9 Chronic obstructive pulmonary disease, unspecified; I25.2 Old myocardial infarction; Z85.46 Personal history of malignant neoplasm of prostate; Z79.899 Other long term (current) drug therapy
CPT/HCPCS: 36415; 71010; 80053; 80061; 83735; 83880; 84443; 84484; 85025; 85379; 85610; 93005; 93306; 96360; 96372; 99284; 99406; A9270; G0378; J1650; J7030; 99218

== ENCOUNTER 2017-01-10 12:59 | Observation (INO) ==
[2017-01-10] MEDS ORDERED: ASPIRIN 81 MG CHEWABLE TABLET PO ONE (13:13)
--- NOTE | 2017-01-10 13:13 | Emergency Department Report ---
Chest Pain HPI - General Chief Complaint: Chest Pain Stated Complaint: chest pain Time Seen by Provider: 01/10/17 13:10 Source: patient Mode of arrival: ambulatory Limitations: no limitations - History of Present Illness HPI narrative: 71 YO M presents to ED with report of substernal chest pain which started at 0930 at home while patient was inactive. Patient says that CP is intermittent and describes it as sharp. Took 1 nitro at home and one 81mg ASA and pain went away, however came back [employer] to ED. Patient denies nausea or diaphoresis associated with CP. Admits mild SOA accompanying CP. Patient states that he has had some intermittent sharp pain in left arm which resolved with nitro each time. Patient is scheduled for cardiac cath on 01-12. MD complaint: chest pain Occurred At: home Onset (ago): hour(s) (4) Time: 0930 Duration: intermittent Onset: during rest Pain location: substernal Severity: mild Severity scale (1-10): 2 Quality: sharp Pain radiation: LUE Relieving factors: nitroglycerin Exacerbating factors: nothing Aspirin Today: 81 mg x 3, provided by ED Nitro Today: 0.4 mg x 1, provided by EMS Treatments prior to arrival chest pain: aspirin, nitroglycerin - Related Data Home Medications Medication Instructions Recorded Confirmed Simvastatin 40 mg PO DAILY #0 11/03/16 01/10/17 Amlodipine Besylate 5 mg PO HS 01/10/17 01/10/17 Aspirin [Ecotrin] 81 mg PO DAILY 01/10/17 01/10/17 Lisinopril 40 mg PO DAILY 01/10/17 01/10/17 Nitroglycerin [Nitrostat] 0.4 mg SL Q5M PRN 01/10/17 01/10/17 Allergies Allergy/AdvReac Type Severity Reaction Status Date / Time No Known Allergies Allergy Verified 01/10/17 13:26 Review of Systems All systems: reviewed and negative except as stated Cardiovascular: Reports: as per HPI, chest pain, palpitations PFSH Patient Stated Medical History Angina Yes Hypertension Yes Gastroesophageal Reflux Yes Disease Surgical History: Tonsils. Appendectomy. Foot Family History: Noncontributory - Social History Smoking status: Former smoker Household members: spouse Physical Exam - Limitations Limitations: no limitations - General General appearance: alert - Normal Exams: Head:: Normocephalic without trauma Eyes:: No scleral icterus, irritation ENMT:: No facial trauma Neck:: Full range of motion, without adenopathy Chest/Respirations:: Clear all ramirez, with good airflow, and symmetry bilaterally Cardiovascular:: Regular rate and rhythm, without murmur or gallop, Pulses 2+ all extremities, capillary refill, <2 seconds all extremities Abdomen:: Bowel sounds positive, soft, non-tender, non-distended, no hepatosplenomegaly Musculoskeletal:: No tenderness, or deformity noted, good range of motion, all extremities Integumentary:: No rashes Neurological:: Patient is alert, and oriented, cranial nerves Psychiatric:: Patient exhibits, appropriate attention, emotion and affect Course Course Narrative: Patient zhong remained CP free since being given 1 nitro 0.4mg SL. I discussed conversation that Dr. Riggs had with Constance Reddy APRN. Patient agrees with admission. - Consultations Consultation #1: I discussed patient's HPI, PMH, labs, VS, EKG, CXR, exam findings and treatment in ED with Constance Murrell APRN for Dr. Fitzgerald. Constance will admit patient observation status for CP. Vital Signs Temperature 98.4 F 01/10/17 13:00 Pulse Rate 70 01/10/17 13:00 Respiratory Rate 16 01/10/17 13:00 Blood Pressure 138/77 01/10/17 13:00 Pulse Oximetry 100 01/10/17 13:00 Temperature 97.6 F 01/11/17 07:11 Pulse Rate 61 01/11/17 18:00 Respiratory Rate 19 01/11/17 18:00 Blood Pressure 126/68 01/11/17 18:00 Pulse Oximetry 98 01/11/17 18:00 Chest Pain - [facility] Narrative Medical decision making narrative: CP resolved with 1 nitro 0.4mg SL. Labs are unremarkable with troponin <0.012. EKG did not show STEMI or ST depression. Patient is admitted observation status due to CP. - Differential Diagnosis Likely: stable angina, unstable angina pectoris, atypical chest pain, st elevation myocardial infarction, chest pain - Medical Records Data Attestation: I reviewed the patient's medical records. - Lab Data Attestation: I reviewed the patient's lab results. Labs unremarkable, troponin < 0.012 Result diagrams: 01/11/17 04:09 01/11/17 04:09 Lab Results 01/10/17 01/10/17 Range/Units 13:16 13:16 WBC 9.1 (4.5-11.0) T/MM3 RBC 4.67 (4.50-5.90) M/MM3 Hgb 14.5 (13.5-17.5) GM/DL Hct 42.0 (41-53) % MCV 89.9 (80-100) UM3 MCH 31.0 (26-34) UUG MCHC 34.5 (31-37) GM/DL RDW Std Deviation 40.7 (36.9-50.2) FL Plt Count 245 (130-400) T/MM3 MPV 9.9 (9.4-12.4) UM3 Immature Gran % (Auto) 0.1 (0.0-0.5) % Neut % (Auto) 49.6 (33-66) % Lymph % (Auto) 41.7 (23-45) % [place] % (Auto) 7.4 (0-9.0) % Eos % (Auto) 0.8 (0-4) % Baso % (Auto) 0.4 (0-2) % Neut # 4.5 (1.8-7.7) T/MM3 Lymph # 3.8 (1-4.8) T/MM3 [place] # 0.7 (0-0.8) T/MM3 Eos # 0.1 (0-0.5) T/MM3 Baso # 0.0 (0-0.2) T/MM3 Abs Immat Gran (auto) 0.01 (0.00-0.03) T/MM3 Turbidity < 20 (0-20) Sodium 143 (134-144) MEQ/L Potassium 4.3 (3.6-5) MEQ/L Chloride 105 (98-107) MEQ/L Carbon Dioxide 25 (22-30) MEQ/L Anion Gap 13 (5-15) MEQ/L BUN 18.0 (9-20) MG/DL Creatinine 0.9 (0.8-1.5) MG/DL GFR Calculation 83 BUN/Creatinine Ratio 20 (6-26) RATIO Glucose 132 H (75-110) MG/DL Calculated Osmolality 279 (261-280) MOSM/KG Calcium 9.4 (8.4-10.2) MG/DL Total Bilirubin 0.80 (0.20-1.30) MG/DL Icterus Index < 2 (0-7) AST 25 (17-59) U/L ALT 34 (21-72) U/L Alkaline Phosphatase 60 (38-126) U/L Troponin I < 0.012 (0-0.12) ng/ml B-Natriuretic Peptide 13.1 (0-175) pg/mL Total Protein 7.4 (6.3-8.2) G/DL Albumin 4.4 (3.5-5.0) G/DL Globulin 3.0 (2.4-3.6) G/DL Albumin/Globulin Ratio 1.5 (1.1-2.2) RATIO Specimen Hemolysis < 15 (0-25) - Radiology Data Attestation: I reviewed the patient's radiology results. No acute cardiopulmonary findings (Dr. Riggs) - EKG Data EKG #1 EKG attestation: Yes: I reviewed and interpreted this EKG. EKG results narrative: NSR, HR 71 bpm, no STEMI Dr. Riggs Disposition Clinical Impression: Chest pain Qualifiers: Chest pain type: unspecified Qualified Code(s): R07.9 - Chest pain, unspecified Disposition: 02 To [facility] Condition: Improved - Seen By: midlevel
[2017-01-10] MEDS ORDERED: NITROGLYCERIN 0.4 MG SUBLINGUAL TABLET SL PRN ×2 (13:15→17:29)
[2017-01-10] MEDS ORDERED: SALINE FLUSH 10ml SYRINGE IVF PRN ×2 (13:43→16:32)
[2017-01-10] MEDS ORDERED: ACETAMINOPHEN 325 MG TABLET PO PRN ×2 (16:45→16:49)
[2017-01-10] MEDS ORDERED: ONDANSETRON ODT 4 MG TABLET PO PRN (16:46)
[2017-01-10] MEDS ORDERED: MAG-AL + SIM ORAL LIQUID 30ml PO PRN (18:20)
--- NOTE | 2017-01-10 20:58 | XRay Report ---
EXAM: XR chest 1V HISTORY: chest pain LOCATION OF DICTATION: [facility] COMPARISON: 11/03/2016 FINDINGS: The cardiomediastinal silhouette is normal. The mediastinum is not widened. The trachea is midline. The pulmonary vascularity is not engorged. There is a hazy appearance at the lung bases which can indicate early changes of a pneumonitis. No dense focal airspace consolidation is seen. The costophrenic angles are sharp. The bony thorax is stable. IMPRESSION: 1. There is a hazy appearance at the lung bases which can be seen with an early pneumonitis. 2. No dense focal airspace consolidation is seen. .
[2017-01-10] MEDS: NITROGLYCERIN 2% OINTMENT 1gm PACKET TP SCH (21:50)
[2017-01-10] MEDS ORDERED: AMLODIPINE 5 MG TABLET PO SCH (22:00)
[2017-01-11] MEDS: NITROGLYCERIN 2% OINTMENT 1gm PACKET TP SCH ×4 (03:20→14:27)
[2017-01-11] MEDS ORDERED: ALFENTANIL 1000mcg/2ml INJECTION ONE ×2 (07:51→12:35)
[2017-01-11] MEDS ORDERED: ASPIRIN *EC* 81 MG TABLET PO SCH (09:00)
[2017-01-11] MEDS ORDERED: ENOXAPARIN 40 MG/0.4 ML INJECTION SQ SCH (09:00)
[2017-01-11] MEDS ORDERED: LISINOPRIL 40 MG TABLET PO SCH (09:00)
[2017-01-11] MEDS ORDERED: NS 1,000 ML IV SCH (12:00)
[2017-01-11] MEDS ORDERED: PROPOFOL 500 MG/50 ML VIAL IV ONE (12:35)
[2017-01-11] MEDS ORDERED: LIDOCAINE VISCOUS 2% ORAL LIQUID 15ml PO ONE (12:41)
[2017-01-11] MEDS ORDERED: LACTULOSE 20 GM/30 ML ORAL LIQUID PO ONE (12:41)
[2017-01-11] MEDS ORDERED: HEPARIN 1,000 UNITS/500 ML PREMIX (*CVL ONLY*) IV ONE (14:29)
[2017-01-11] MEDS ORDERED: LIDOCAINE 1% (10mg/ml) 30ml SDV INJ ONE (14:29)
[2017-01-11] MEDS ORDERED: CLOPIDOGREL 75 MG TABLET ONE (14:39)
[2017-01-11] MEDS ORDERED: VERAPAMIL 5 MG/2 ML VIAL ONE (15:06)
[2017-01-11] MEDS ORDERED: FentaNYL 100 MCG/2 ML INJECTION ONE (15:06)
[2017-01-11] MEDS ORDERED: MIDAZOLAM 2mg/2ml INJECTION ONE (15:06)
[2017-01-11] MEDS ORDERED: NITROGLYCERIN 50MG INJECTION IV ONE (15:06)
[2017-01-11] MEDS ORDERED: HEPARIN 1,000 UNIT/ML INJECTION 10ml ONE (15:07)
[2017-01-11] MEDS ORDERED: IOHEXOL 350mg/ml 200ml BOTTLE ONE (15:12)
[2017-01-11] MEDS ORDERED: BISACODYL 10 MG SUPPOSITORY RECTALLY PRN (15:39)
[2017-01-11] MEDS ORDERED: ACETAMINOPHEN 325 MG TABLET PO PRN (15:39)
[2017-01-11] MEDS ORDERED: METOCLOPRAMIDE 10mg/2ml INJECTION IVP PRN (15:39)
[2017-01-11] MEDS ORDERED: LORazepam 0.5 MG TABLET PO PRN (15:39)
[2017-01-11] MEDS ORDERED: PROMETHAZINE 25 MG INJECTION IVP PRN (15:39)
[2017-01-11] MEDS ORDERED: ONDANSETRON 4 MG/2 ML INJECTION IVP PRN (15:39)
[2017-01-11] MEDS ORDERED: ATROPINE 1 MG/ML INJECTION IVP PRN (15:39)
[2017-01-11] MEDS ORDERED: MAG-AL + SIM ORAL LIQUID 30ml PO PRN (15:39)
[2017-01-11] MEDS ORDERED: BISACODYL E.C. 5 MG TABLET PO PRN (15:39)
[2017-01-11] MEDS ORDERED: NITROGLYCERIN 0.4 MG SUBLINGUAL TABLET SL PRN (15:39)
[2017-01-11] MEDS ORDERED: MORPHINE SULFATE 4 MG SYRINGE IVP PRN ×2 (15:39)
[2017-01-11] MEDS ORDERED: HYDROCODONE/APAP 5mg/325mg TABLET PO PRN (15:39)
--- NOTE | 2017-01-11 16:06 | Discharge Summary ---
<Alexandra Mills Ad - Last Filed: 01/11/17 16:30> Discharge Information Date of admission: 01/10/17 15:44 Anticipated date of discharge: 01/11/17 Attending Physician: Jarek Fitzgerald MD Primary care physician: Bryon Larsen - Discharge Diagnosis (1) Chest pain Qualifiers: Chest pain type: unspecified Qualified Code(s): R07.9 - Chest pain, unspecified Status: Acute (2) Abnormal findings on diagnostic imaging of heart and coronary circulation Problem Details: recent abnormal stress test. Left heart cath with possible PCI scheduled for tomorrow, performed today Status: Acute (3) Non-rheumatic tricuspid valve insufficiency Problem Details: routine monitoring Status: Chronic (4) Essential (primary) hypertension Problem Details: stable, continue current therapy with routine monitoring Status: Chronic (5) Mixed hyperlipidemia Problem Details: Takes Simvastatin, PCP manages Status: Chronic - Procedures Procedures: Cardiac Catheterization: report pending - Laboratory Labs: 01/11/17 04:09 01/11/17 04:09 Laboratory Results - last 48 hr 01/10/17 01/10/17 01/10/17 13:16 13:16 16:53 WBC 9.1 RBC 4.67 Hgb 14.5 Hct 42.0 MCV 89.9 MCH 31.0 MCHC 34.5 RDW Std Deviation 40.7 Plt Count 245 MPV 9.9 Immature Gran % (Auto) 0.1 Neut % (Auto) 49.6 Lymph % (Auto) 41.7 Bullock % (Auto) 7.4 Eos % (Auto) 0.8 Baso % (Auto) 0.4 Neut # 4.5 Lymph # 3.8 Bullock # 0.7 Eos # 0.1 Baso # 0.0 Abs Immat Gran (auto) 0.01 Turbidity < 20 Sodium 143 Potassium 4.3 Chloride 105 Carbon Dioxide 25 Anion Gap 13 BUN 18.0 Creatinine 0.9 GFR Calculation 83 BUN/Creatinine Ratio 20 Glucose 132 H Calculated Osmolality 279 Calcium 9.4 Magnesium Total Bilirubin 0.80 Icterus Index < 2 AST 25 ALT 34 Alkaline Phosphatase 60 Troponin I < 0.012 < 0.012 B-Natriuretic Peptide 13.1 Total Protein 7.4 Albumin 4.4 Globulin 3.0 Albumin/Globulin Ratio 1.5 Specimen Hemolysis < 15 < 15 01/10/17 01/11/17 01/11/17 22:44 04:09 04:09 WBC 6.8 RBC 4.39 L Hgb 13.6 Hct 39.7 L MCV 90.4 MCH 31.0 MCHC 34.3 RDW Std Deviation 41.4 Plt Count 254 MPV 10.4 Immature Gran % (Auto) 0.4 Neut % (Auto) 44.4 Lymph % (Auto) 41.5 Bullock % (Auto) 10.0 H Eos % (Auto) 3.0 Baso % (Auto) 0.7 Neut # 3.0 Lymph # 2.8 Bullock # 0.7 Eos # 0.2 Baso # 0.1 Abs Immat Gran (auto) 0.03 Turbidity < 20 Sodium 143 Potassium 4.2 Chloride 105 Carbon Dioxide 26 Anion Gap 12 BUN 19.0 Creatinine 0.9 GFR Calculation 83 BUN/Creatinine Ratio 21 Glucose 101 Calculated Osmolality 277 Calcium 9.4 Magnesium 2.2 Total Bilirubin 0.50 Icterus Index < 2 AST 22 ALT 34 Alkaline Phosphatase 58 Troponin I < 0.012 < 0.012 B-Natriuretic Peptide Total Protein 6.6 Albumin 4.0 Globulin 2.6 Albumin/Globulin Ratio 1.5 Specimen Hemolysis < 15 < 15 - Radiology Radiology: Date of Exam: 01/10/17 Ordering Provider: Sarita Mahajan APRN Type of Exam(s): XR chest 1V Reason for Exam(s): chest pain EXAM: XR chest 1V HISTORY: chest pain LOCATION OF DICTATION: [facility] COMPARISON: 11/03/2016 FINDINGS: The cardiomediastinal silhouette is normal. The mediastinum is not widened. The trachea is midline. The pulmonary vascularity is not engorged. There is a hazy appearance at the lung bases which can indicate early changes of a pneumonitis. No dense focal airspace consolidation is seen. The costophrenic angles are sharp. The bony thorax is stable. IMPRESSION: 1. There is a hazy appearance at the lung bases which can be seen with an early pneumonitis. 2. No dense focal airspace consolidation is seen. History of Present Illness HPI: Leah is a 71 year old male who is well known to Dr. Fitzgerald who presented to ED with report of substernal chest pain which started while patient was inactive. He stated that the chest pain is intermittent and he describes it as sharp. Took 1 nitro at home and one 81mg ASA and pain went away. He reports he has had some intermittent sharp pain in left arm which resolved with nitro each time. He had a recent abnormal stress test and is scheduled for Left heart catheterization with possible PCI for tomorrow morning as an outpatient. He will undergo heart cath today instead. Hospital Course Hospital course: Mr. Elias is a 71 year old male who was admitted for observation and changed to an outpatient for planned left heart cath. Cardiac cath was performed and only mild CAD was found, report pending. Patient remains bradycardic off of Atenolol. Will need outpatient Holter monitor for frequent PVCs and reported dizziness. Exam Vital signs: Temp Pulse Resp BP Pulse Ox 97.6 F 60 14 130/58 98 01/11/17 07:11 01/11/17 15:43 01/11/17 15:43 01/11/17 15:43 01/11/17 15:43 - Constitutional no acute distress, cooperative - Routine HEENT Exam ENT: Present: mucous membranes moist - Routine Neck Exam Absent: JVD, carotid bruit - Routine Chest/Breast/Axilla Exam Chest wall: Absent: tenderness - Routine Respiratory Exam Present: CTA bilaterally. Absent: rales, wheezes, crackles - Routine Cardiovascular Exam Present: RRR. Absent: murmur - Routine Abdominal Exam Present: soft, normoactive bowel sounds - Routine Skin Exam Present: intact - Routine Neurological Exam Present: alert, oriented X3 - Routine Psychiatric Exam Present: normal affect, normal thought process Results 01/11/17 04:09 01/11/17 04:09 Cardiac Enzymes 01/10/17 01/10/17 01/11/17 Range/Units 16:53 22:44 04:09 AST 22 (17-59) U/L Troponin I < 0.012 < 0.012 < 0.012 (0-0.12) ng/ml CBC 01/11/17 Range/Units 04:09 WBC 6.8 (4.5-11.0) T/MM3 RBC 4.39 L (4.50-5.90) M/MM3 Hgb 13.6 (13.5-17.5) GM/DL Hct 39.7 L (41-53) % Plt Count 254 (130-400) T/MM3 Neut # 3.0 (1.8-7.7) T/MM3 Lymph # 2.8 (1-4.8) T/MM3 Bullock # 0.7 (0-0.8) T/MM3 Eos # 0.2 (0-0.5) T/MM3 Baso # 0.1 (0-0.2) T/MM3 Comprehensive Metabolic Panel 01/11/17 Range/Units 04:09 Sodium 143 (134-144) MEQ/L Potassium 4.2 (3.6-5) MEQ/L Chloride 105 (98-107) MEQ/L Carbon Dioxide 26 (22-30) MEQ/L BUN 19.0 (9-20) MG/DL Creatinine 0.9 (0.8-1.5) MG/DL Glucose 101 (75-110) MG/DL Calcium 9.4 (8.4-10.2) MG/DL AST 22 (17-59) U/L ALT 34 (21-72) U/L Alkaline Phosphatase 58 (38-126) U/L Total Protein 6.6 (6.3-8.2) G/DL Albumin 4.0 (3.5-5.0) G/DL Intake and Output 01/11/17 01/11/17 01/11/17 06:59 14:59 22:59 Intake Total 200 / 200 446.25 / 446.25 Output Total 550 / 550 475 / 475 Balance -350 / -350 -28.75 / -28.75 Intake: IV 256.25 / 256.25 Normal Saline 1,000 ml @ 256.25 / 256.25 75 mls/hr IV .[id number] ROSALINDA Rx#:[id number] Oral 200 / 200 190 / 190 Output: Urine 550 / 550 475 / 475 Other: Weight 178 lb 9.191 oz Patient Weight 01/12/17 06:59 Weight 178 lb 9.191 oz - Imaging and Cardiology EKG results: image reviewed Discharge Plan - Med Rec/Dispo Referrals/Follow Up: Jarek Fitzgerald MD [Physician] - 02/10/17 10:00 am Yosef Instructions: [facility] Heart Cath Trans Rad Prescriptions: Continue Simvastatin 40 mg PO DAILY #0 Aspirin [Ecotrin] 81 mg PO DAILY Amlodipine Besylate 5 mg PO HS Lisinopril 40 mg PO DAILY Nitroglycerin [Nitrostat] 0.4 mg SL Q5M PRN PRN Reason: Chest Pain - Disposition 01 Discharged Home, Self-Care <Jarek Fitzgerald - Last Filed: 01/13/17 10:43> Discharge Information Date of admission: 01/10/17 15:44 Attending Physician: Jarek Fitzgerald MD Primary care physician: Bryon Larsen - Discharge Diagnosis (1) Chest pain Qualifiers: Chest pain type: unspecified Qualified Code(s): R07.9 - Chest pain, unspecified Status: Acute (2) Abnormal findings on diagnostic imaging of heart and coronary circulation Problem Details: recent abnormal stress test. Left heart cath with possible PCI scheduled for tomorrow, performed today Status: Acute (3) Non-rheumatic tricuspid valve insufficiency Problem Details: routine monitoring Status: Chronic (4) Essential (primary) hypertension Problem Details: stable, continue current therapy with routine monitoring Status: Chronic (5) Mixed hyperlipidemia Problem Details: Takes Simvastatin, PCP manages Status: Chronic - Laboratory Labs: 01/11/17 04:09 01/11/17 04:09 Hospital Course Hospital course: Mr. Elias is a 71 year old male Exam Vital signs: Temp Pulse Resp BP Pulse Ox 97.6 F 61 19 126/68 98 01/11/17 07:11 01/11/17 18:00 01/11/17 18:00 01/11/17 18:00 01/11/17 18:00 Results 01/11/17 04:09 01/11/17 04:09
[2017-01-11] MEDS ORDERED: SIMVASTATIN 40 MG TABLET PO SCH (22:00)
--- NOTE | 2017-01-12 11:12 | Cardiac Catheterization Report ---
DATE OF PROCEDURE January 11, [address] Bryon Larsen The patient is a pleasant 71-year-old gentleman with history of coronary artery disease who was admitted with unstable angina and was referred for further evaluation by cardiac catheterization and possible intervention. He has also had a recent stress test which was abnormal. Informed consent was obtained after explaining the procedure and the potential risks to the patient who agreed to proceed with the procedure. PROCEDURE 1. Left heart catheterization. 2. Coronary angiography. 3. Left ventriculography. TECHNIQUE The patient was prepped and draped in the usual sterile techniques. Conscious sedation was performed using Versed and fentanyl. 1% lidocaine was used for local anesthesia. Using modified Seldinger technique, arterial access was obtained into the right radial artery with placement of a 6-Armenian arterial sheath. 3000 units of heparin, 300 mcg of nitroglycerin, and 2.5 mg of verapamil were given through the arterial sheath. LEFT VENTRICULOGRAPHY Left ventriculography in single-plane FISCHER shallow projection showed normal LV systolic function with ejection fraction of about 65% with no mitral regurgitation or gradient across the aortic valve. LVEDP was about 5. CORONARY ANGIOGRAPHY Left main was free of significant lesions. Left anterior descending artery had irregularities with about 30% stenosis after the diagonal. Left circumflex artery had about 30% stenosis in mid segment and it was nondominant. Right coronary artery was calcified with diffuse irregularities with about 20-30% proximal stenosis. The patient tolerated the procedure well with no complications. IMPRESSION 1. Mild coronary artery disease as described above. 2. Normal LV systolic function with ejection fraction of about 65%. PLAN Medical management. The patient may require noncardiac chest pain workup as per primary care physician. REAGAN
== END 2017-01-11 18:20 | disposition home or self-care (01) ==
LOC: SRG 12:59 → ED 12:59 → SRG 15:55
PROVIDERS: ADMIT Internal Medicine Cardiovascular Disease; ATTEND Internal Medicine Cardiovascular Disease